=== PATIENT | male | born 1985 | race Caucasian/White ===

== ENCOUNTER 2020-04-09 09:50 | Emergency (ER) | payer BC, SELFPAY ==
--- NOTE | ~2020-04-09 | CT_ITS ---
EXAMINATION: CT abdomen pelvis wo con DATE: 04/09/2020 10:44 INDICATION: Left lower quadrant abdominal pain. TECHNIQUE: Computed tomography (CT) of the abdomen and pelvis was performed without intravenous contr ast. Automated exposure control and iterative reconstruction technique were employed. The dose-length product was 656.37 mGy-cm. COMPARISON: None. FINDINGS: The visualized portions of the lung bases are clear without pneumonia or pleural effusion. The heart size is normal. No pericardial effusion. There is a small sliding hiatal hernia. The liver, gallbladder, spleen, pancreas, adrenal glands, and right kidney are normal. There is mild left hydro nephrosis. There is a 4 mm stone in proximal left ureter. There are no dilated loops of bowel. The ap pendix is normal. There are no pathologically enlarged lymph nodes. There is no free intraperitoneal fluid. The bones are unremarkable. IMPRESSION: 1. 4 mm stone in proximal left ureter with mild left hydronephrosis. 2. Small sliding hiatal hernia. Reviewed, dictated and finalized at location A.
[2020-04-09 09:59] VITALS: BP 153/77; PULSE 76; RESP 18; TEMP 36.2; O2SAT 100
--- NOTE | 2020-04-09 10:15 | ED.ABDPAIN ---
HPI - Abdominal Pain General Chief Complaint: Abdominal Pain Stated Complaint: ABD PAIN Time Seen by Provider: 04/09/20 10:08 History of Present Illness HPI narrative: LLQ pain radiaiting into the scrotum since this morning. Severe. Better with standing. Associated with mild nausea. He has never had these symptoms before. No medical problem, takes no meds. No previous surgery. Related Data Allergies Allergy/AdvReac Type Severity Reaction Status Date / Time Sulfa (Sulfonamide Allergy Rash Verified 04/09/20 11:03 Antibiotics) Review of Systems Review of Systems: All systems reviewed & are unremarkable except as noted in HPI and below Constitutional: Constitutional: Denies fever(s) Cardiovascular: Cardiovascular: Denies chest pain Respiratory: Respiratory: Denies dyspnea Gastrointestinal: Gastrointestinal: Reports abdominal pain, Denies constipation, Denies diarrhea, Reports nausea and Denies vomiting Genitourinary: Genitourinary: Denies hematuria and Denies dysuria Neurologic: Denies dizziness and Denies weakness PMFSH Social History Social History (Updated 04/09/20 @ 11:00 by Romario Lund MD) Smoking status: Never smoker Exam Const: General: healthy appearing, no acute distress and alert Nutritional Appearance: well nourished Orientation/consciousness: patient oriented x3 HENMT: Head: normal to inspection Resp: Effort & Inspection: normal respiratory effort Auscultation: clear to auscultation bilaterally Cardio: Rate: regular rate Rhythm: regular rhythm GI: GI Palp: Yes Soft to palpation, Yes Tenderness to palpation present (GI) (mild LLQ), No Guarding due to palpation present (GI) and No Rebound tenderness present Skin: General skin exam: normal color Neuro: General: patient oriented x3, moves all extremities and CN's II-XI intact bilaterally Speech: normal speech Extrem: General: normal to inspection Course Vital Signs Vital signs: Vital Signs Temperature 36.2 C L 04/09/20 09:59 Pulse Rate 76 04/09/20 09:59 Respiratory Rate 18 04/09/20 09:59 Blood Pressure 153/77 H 04/09/20 09:59 Pulse Oximetry 100 04/09/20 09:59 Temperature 36.2 C L 04/09/20 09:59 Pulse Rate 72 04/09/20 12:50 Respiratory Rate 18 04/09/20 12:50 Blood Pressure 138/75 04/09/20 12:50 Pulse Oximetry 100 04/09/20 12:50 MDM - Abdominal Pain MDM Narrative Medical decision making narrative: [address] No indication of associated infection. He is a good candidate for a trial of nonoperative management. Medical Records Attestation: I reviewed the patient's medical records. Lab Data Attestation: I reviewed the patient's lab results. Result diagrams: 04/09/20 10:16 04/09/20 10:16 Labs: Lab Results 04/09/20 04/09/20 Range/Units 10:16 10:16 WBC 7.0 (4.5-10.0) K/mm3 RBC 4.97 (4.6-6.20) M/mm3 Hgb 15.5 (14.0-18.0) g/dL Hct 45.4 (42.0-52.0) % MCV 91.3 (80-100) fl MCH 31.2 (26-34) pg MCHC 34.1 (32-36) g/dl RDW 11.6 (11.5-14.5) % Plt Count 221 (150-375) k/mm3 MPV 11.1 H (7.4-10.4) fl Immature Gran % (Auto) 0.3 (0-0.5) % Neut % (Auto) 67.0 (45.5-73.1) % Lymph % (Auto) 23.0 (18.3-44.2) % [place] % (Auto) 7.7 (2.6-8.5) % Eos % (Auto) 1.6 (0-4.4) % Baso % (Auto) 0.4 (0.2-1.2) % Lymph # (Auto) 1.61 (0.9-3.2) K/mm3 [place] # (Auto) 0.5 (0.1-0.6) K/mm3 Eos # (Auto) 0.1 (0-0.3) K/mm3 Baso # (Auto) 0.0 (0.0-0.1) K/mm3 Abs Immat Gran (auto) 0.02 (0.00-0.031) K/mm3 Absolute Neuts (auto) 4.7 (1.3-6.7) K/mm3 Absolute Nucleated RBC 0.0 (0.0-0.012) K/mm3 Nucleated RBC % 0.0 (0.0-0.2) % Sodium 138 (137-145) mmol/L Potassium 4.0 (3.4-5.0) mmol/L Chloride 103 (98-107) mmol/L Carbon Dioxide 27 (22-30) mmol/L BUN 13 (9-20) mg/dL Creatinine 0.90 (0.7-1.3) mg/dL Estim Creat Clear Calc 124 ml/min Estimated GFR > 60 (59 - ) Glucose 117 H (7
[2020-04-09 10:54] LABS: Basophils Percent Auto 0.4 % (0.2-1.2); Eosinophils Absolute Auto 0.1 K/mm3 (0-0.3); Eosinophils Percent Auto 1.6 % (0-4.4); Hematocrit 45.4 % (42.0-52.0); Hemoglobin 15.5 g/dL (14.0-18.0); Immature Granulocyte Absolute 0.02 K/mm3 (0.00-0.031); Immature Granulocyte Percent A 0.3 % (0-0.5); Lymphocytes Absolute Auto 1.61 K/mm3 (0.9-3.2); Mean Corpuscular HGB Conc 34.1 g/dl (32-36); Mean Corpuscular Hemoglobin 31.2 pg (26-34); Mean Corpuscular Volume 91.3 fl (80-100); Mean Platelet Volume 11.1 fl (7.4-10.4); Monocytes Absolute Auto 0.5 K/mm3 (0.1-0.6); Monocytes Percent Auto 7.7 % (2.6-8.5); Neutrophils Absolute Auto 4.7 K/mm3 (1.3-6.7); Platelet Count Result 221 k/mm3 (150-375); Red Blood Count 4.97 M/mm3 (4.6-6.20); Red Cell Distribution Width 11.6 % (11.5-14.5)
[2020-04-09 11:01] LABS: Alanine Aminotransferase 20 U/L (4-50); Albumin Level 4.7 g/dL (3.5-5.1); Alkaline Phosphatase 67 U/L (38-126); Aspartate Amino Transferase 23 U/L (17-59); Blood Urea Nitrogen 13 mg/dL (9-20); Calcium 9.4 mg/dL (8.4-10.2); Carbon Dioxide 27 mmol/L (22-30); Chloride 103 mmol/L (98-107); Estimated CRCL calculation 124 ml/min; Estimated Glomerular Filt Rate > 60; Glucose 117 mg/dL (75-110); Sodium 138 mmol/L (137-145)
[2020-04-09] MEDS: TAMSULOSIN HCL 0.4 MG CAPSULE PO (11:06)
[2020-04-09] MEDS: KETOROLAC 30 MG/ML VIAL (*BKC) IV PUSH (11:31)
[2020-04-09] MEDS: SODIUM CHLORIDE 0.9% IV 1,000 ML 999 ML IV CONT (11:33)
[2020-04-09 12:46] LABS: Bilirubin,Total 0.5 mg/dL (0.2-1.3); Lipase 79 U/L (23-300)
[2020-04-09 12:50] VITALS: BP 138/75; PULSE 72; RESP 18; O2SAT 100
== END 2020-04-09 12:51 | disposition home or self-care (01) ==
PROVIDERS: Emergency Provider Emergency Medicine; PCP Internal Medicine
DX: N13.2 Hydronephrosis with renal and ureteral calculous obstruction (principal); K44.9 Diaphragmatic hernia without obstruction or gangrene
CPT/HCPCS: 36415; 74176; 80053; 83690; 85025; 96361; 96374; 96375; 99284; A9270; J1885; J3010; J7030

== ENCOUNTER 2020-04-14 12:16 | Outpatient (CLI) | payer BC, SELFPAY ==
--- NOTE | ~2020-04-14 | XR_ITS ---
XR abdomen/kub 1V 04/14/2020 12:38 Indication: Left-sided kidney stone Procedure: KUB Comparison: CT dated 04/09/2020 Findings: There is a proximal left ureteral stone adjacent to the left L2 transverse process. Bowel g as pattern is nonobstructive. No acute osseous abnormality. Impression: 1: Proximal left ureteral stone at the L2 level. Reviewed, dictated and finalized at location A. Impression: 1: Proximal left ureteral stone at the L2 level.
== END 2020-04-14 12:17 | disposition home or self-care (01) ==
PROVIDERS: Visit Provider Urology
DX: N20.1 Calculus of ureter (principal)
CPT/HCPCS: 74018

== ENCOUNTER 2020-04-15 00:35 | Outpatient (CLI) | payer BC, SELFPAY ==
[2020-04-15 17:33] LABS: SARS-CoV-2 RNA PCR Negative
== END 2020-04-15 00:36 | disposition home or self-care (01) ==
LOC: ANHCOVIDDT 00:35
PROVIDERS: Visit Provider Urology
DX: Z01.812 Encounter for preprocedural laboratory examination (principal); Z20.828 Contact with and (suspected) exposure to other viral communicable diseases
CPT/HCPCS: 87635; C9803; U0003

== ENCOUNTER 2020-04-15 07:14 | Outpatient (CLI) | payer BC, SELFPAY ==
[2020-04-15 08:06] LABS: INR 1.1; Partial Thromboplastin Time 27.7 SECONDS (22.3-36.8)
== END 2020-04-15 07:15 | disposition home or self-care (01) ==
PROVIDERS: Visit Provider Urology
DX: N20.0 Calculus of kidney (principal)
CPT/HCPCS: 36415; 85610; 85730

== ENCOUNTER 2020-04-17 01:36 | Day surgery (SDC) | payer BC, SELFPAY ==
[2020-04-14 14:45] VITALS: BMI 25.7
[2020-04-17] VITALS (8 sets, daily range): BP systolic 99–123; BP diastolic 63–77; PULSE 54–71; RESP 10–17; TEMP 35.8–36.3; O2SAT 98–100
--- NOTE | ~2020-04-17 | XR_ITS ---
EXAMINATION: XR abdomen/kub 1V DATE: 04/17/2020 06:47 INDICATION: Nephrolithiasis for planned lithotripsy. TECHNIQUE: A supine view of the abdomen on 2 radiographs was obtained. COMPARISON: CT dated 04/09/2020 FINDINGS: No interval change in a 5 mm stone at the proximal left ureter projecting along the cephalad margin o f the left transverse process of L3. Normal bowel gas pattern. IMPRESSION: 1. 5 mm proximal left ureteral stone. Reviewed, dictated and finalized at location A.
--- NOTE | 2020-04-17 06:55 | WPDHPUPDATE1 ---
History and Physical Update Update Date/Time: 04/17/20 06:55 History and Physical has been reviewed, including an updated exam of the patient. There are NO changes in the patient's condition. Risks, benefits, and alternatives have been discussed and questions answered. Patient agrees to proceed with procedure.
[2020-04-17] MEDS: LACTATED RINGERS 1,000 ML 30 ML IV CONT (07:20)
--- NOTE | 2020-04-17 08:05 | WPDANESEPPF ---
Anes - Initial Pre Proc Eval Procedure: Operation Date: 04/17/20 08:30 Proposed Procedures p Left Ureteral Extracorporeal Shock Wave Lithotripsy - Norberto Beaulieu MD Date/Time: 04/17/20 08:05 Surgeon: Norberto Beaulieu MD Pre Op Diagnosis: left ureteral stone Patient Data Age: 34 Gender: M Height: 6 ft 3 in Weight: 94.2 kg Last Vital Signs Temp 96.5 F L 04/17/20 07:44 Pulse 71 04/17/20 07:44 Resp 16 04/17/20 07:44 BP 108/63 04/17/20 07:44 Pulse Ox 98 04/17/20 07:44 Allergies Allergy/AdvReac Type Severity Reaction Status Date / Time Sulfa (Sulfonamide Allergy Mild LIGHT Verified 04/17/20 06:58 Antibiotics) SENSITIVITY Home Medications Medication Instructions Recorded Confirmed Type hydrocodone-acetaminophen [[place]] 1 tablet PO Q4H PRN #10 tablet 04/09/20 04/17/20 Rx tamsulosin [Flomax] 0.4 mg PO DAILY #10 cap 04/09/20 04/17/20 Rx cholecalciferol (vitamin D3) 125 mcg PO DAILY 04/14/20 04/17/20 History [Vitamin D3] multivitamin 1 tablet PO DAILY 04/14/20 04/17/20 History Patient hx anesthesia problems: none Family hx anesthesia problems: none [facility] Social History Social History (Updated 04/09/20 @ 11:00 by Romario Lund MD) Smoking status: Never smoker Anes - Eval Final PreProcedure Day of Procedure 04/17/20 08:05 Patient weight: normal Heart: regular rate and rhythm Lungs: clear to auscultation Airway: Mallampati scale class II Neurological: alert and oriented Last oral intake: >/= 8 hours ASA classification: I Emergent: no Anesthetic plan: proceed Anesthesia type and monitoring: general LMA and standard monitoring Informed Consent: The patient's anesthetic plan and its attendant risks and benefits were discussed with the patient/family/POA. Questions were solicited and answers provided to the satisfaction of the patient/family/POA.
[2020-04-17] MEDS: KETOROLAC 30 MG/ML VIAL (*BKC) IV PUSH (08:54)
--- NOTE | 2020-04-17 09:03 | PM.PROC ---
Procedure Note - Detailed Date of procedure: 04/17/20 Pre-op diagnosis: left ureteral stone Post-op diagnosis: same Procedure performed: ESWL of left ureteral calculus 4-5 mm Description of procedure: Patient was taken to the operative suite and correctly identified. Once anesthesia was obtained the stone was localized in both planes. Two thousand five hundred shocks were given to the stone. Patient tolerated procedure well without any complications. There appeared to be good fragmentation of the stone. He will follow up in 10-14 days with a KUB. If he develops any problems he will call so we can deal with appropriately Anesthesia: SUE Surgeon: Norberto Beaulieu MD Drains: No Packing: No Pathology: none sent Complications: No immediate complications Condition: stable Disposition: PACU
== END 2020-04-17 10:40 | disposition home or self-care (01) ==
PROVIDERS: PCP Internal Medicine; Visit Provider Urology
PROC: (CPT 50590; principal; 2020-04-17 08:30)
DX: N20.1 Calculus of ureter (principal)
CPT/HCPCS: 50590; 74018; J1100; J1885; J2405; J2704; J3010; J7120

== ENCOUNTER 2020-05-21 13:24 | Outpatient (CLI) | payer BC, SELFPAY ==
--- NOTE | ~2020-05-21 | XR_ITS ---
XR abdomen/kub 1V DATE: 05/21/2020 13:42 INDICATION: Left kidney stone TECHNIQUE: AP projection, 2 views COMPARISON: 04/17/2020 KUB 04/24/2020 KUB 04/09/2020 CT abdomen pelvis noncontrast examination FINDINGS: Previously reported 5 mm calcified stone of the proximal left ureter is no longer detected and presumably has passed. The psoas shadows are intact. No visceromegaly. No evidence of bowel obstruction. IMPRESSION: Apparent interval passage of 5 mm calcified left ureteral stone which is no longer radiog raphically detected Reviewed, dictated and finalized at Location A. Reviewed, dictated and finalized at location A. IMPRESSION: Apparent interval passage of 5 mm calcified left ureteral stone whi ch is no longer radiographically detected
== END 2020-05-21 13:25 | disposition home or self-care (01) ==
PROVIDERS: PCP Internal Medicine; Visit Provider Urology
DX: N20.1 Calculus of ureter (principal)
CPT/HCPCS: 74018

== ENCOUNTER → 2020-08-18 08:13 | Outpatient (CLI) | payer BC, SELFPAY ==
--- NOTE | ~2020-08-18 | CT_ITS ---
EXAMINATION: CT abdomen pelvis wo con DATE: 08/18/2020 08:29 INDICATION: Left ureteral stone TECHNIQUE: Computed tomography (CT) of the abdomen and pelvis was performed without intravenous contr ast. Automated exposure control and iterative reconstruction technique were employed. The dose-length product was 460.93 mGy-cm. COMPARISON: 05/21/2020 FINDINGS: Visualized lower lungs are clear. Visualized inferior heart is normal. Very small pericardial effusio n. No pleural effusion. Liver, gallbladder, spleen, pancreas and bilateral adrenal glands are normal. Kidneys and ureters are normal with no urolithiasis, hydroureteronephrosis or perinephric/ureteral s tranding. There is diffuse bladder wall thickening measuring up to 9 mm in thickness with smooth muco giorgio contour. No inflammatory stranding surrounding the bladder. Bowels including the appendix are nor mal. No free intraperitoneal gas or fluid. No pathologically enlarged abdominal or pelvic lymphadenop athy. Mild bilateral hip osteoarthritis. IMPRESSION: 1. Normal kidneys with no hydronephrosis or urolithiasis. 2. Diffuse bladder wall thickening which may be related to decompressed state but differential would include cystitis either acute or chronic. Correlate with urinalysis. Reviewed, dictated and finalized at location B. IMPRESSION: 1. Normal kidneys with no hydronephrosis or urolithiasis. 2. Diffuse bladder wall thickening which may be related to decompressed state b ut differential would include cystitis either acute or chronic. Correlate with urinalysis.
== END ==
PROVIDERS: Visit Provider Urology
DX: N20.1 Calculus of ureter (principal)
CPT/HCPCS: 74176

== ENCOUNTER 2020-08-28 03:30 | Outpatient (CLI) | payer BC, SELFPAY ==
[2020-08-28 17:45] LABS: SARS-CoV-2 RNA PCR Negative
== END 2020-08-28 03:31 | disposition home or self-care (01) ==
LOC: ANHCOVIDDT 03:30
PROVIDERS: PCP Internal Medicine; Visit Provider Surgery
DX: Z01.812 Encounter for preprocedural laboratory examination (principal); Z20.828 Contact with and (suspected) exposure to other viral communicable diseases
CPT/HCPCS: 87635; C9803; U0003

== ENCOUNTER 2020-08-31 01:27 | Day surgery (SDC) | payer BC, SELFPAY ==
[2020-08-27 14:58] VITALS: BMI 25.6
[2020-08-31] VITALS (10 sets, daily range): BP systolic 111–127; BP diastolic 54–77; PULSE 58–95; RESP 10–16; TEMP 35.9–36.4; O2SAT 98–100
--- NOTE | 2020-08-31 08:39 | P.PNAN_ITS ---
Anes - Initial Pre Proc Eval Procedure: Operation Date: 08/31/20 11:00 Proposed Procedures p Laparoscopic Left Inguinal Hernia Repair with Mesh, Possible Open - Pito Mane MD Date/Time: 08/31/20 08:39 Surgeon: Pito Mane MD Pre Op Diagnosis: left inguinal hernia Patient Data Age: 34 Gender: M Height: 1.91 m Weight: 92.99 kg Allergies Allergy/AdvReac Type Severity Reaction Status Date / Time Sulfa (Sulfonamide Allergy Mild photophobia Verified 08/27/20 15:09 Antibiotics) Home Medications Medication Instructions Recorded Confirmed Type cholecalciferol (vitamin D3) 125 mcg PO DAILY 04/14/20 08/27/20 History [Vitamin D3] multivitamin 1 tablet PO DAILY 08/27/20 08/27/20 History Patient hx anesthesia problems: none Family hx anesthesia problems: none PMFSH Past Medical History Medical History Healthy adult History of kidney stones Surgical History Surgical History History of nephrolithotomy with removal of calculi Family History Family History Father Hypertension Mother Kidney stones Social History Social History Smoking status: Never smoker Alcohol intake: current Drinks per week: 10 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 Questions were solicited a nd answers provided to the satisfaction of the patient/family/POA.
[2020-08-31] MEDS: LACTATED RINGERS 1,000 ML 30 ML IV CONT ×3 (09:30→13:24)
[2020-08-31] MEDS: KETOROLAC 15 MG/ML VIAL (*BKC) IV PUSH (09:35)
[2020-08-31] MEDS: ACETAMINOPHEN 500 MG TABLET 1000 MG PO (09:37)
--- NOTE | 2020-08-31 10:42 | WPDHPUPDATE1 ---
History and Physical Update Update Date/Time: 08/31/20 10:42 History and Physical has been reviewed, including an updated exam of the patient. There are NO changes in the patient's condition. Risks, benefits, and alternatives have been discussed and questions answered. Patient agrees to proceed with procedure.
[2020-08-31] MEDS: ceFAZolin 2 GM/D5W 50 ML 2 GM/50 ML BAG IVPB (10:53)
[2020-08-31] MEDS: BUPIVACAINE/EPINEPHRINE 0.5% 10 ML VIAL 30 ML INFILTRATE (11:45)
--- NOTE | 2020-08-31 12:52 | PM.PROC ---
Procedure Note - Detailed Date of procedure: 08/31/20 Pre-op diagnosis: left inguinal hernia Post-op diagnosis: same ( suspected small direct left inguinal hernia) Procedure performed: Laparoscopic preperitoneal left inguinal hernia repair Description of procedure: After appropriate marking of the operative site prior to surgery, the patient was taken to the operating room. After induction of adequate general endotracheal anesthesia by [facility] staff, the patient was carefully prepped and draped in a sterile fashion. A timeout was performed confirming the procedure and site of surgery on the left. Following this, local anesthetic was infiltrated into the umbilical area and a vertical incision was made just below the umbilicus. I carefully dissected down to the the anterior rectus sheath on the left and then made a 1 cm vertical slit in the fascia just off the midline. The rectus muscle was retracted to left and then just in front of the posterior rectus sheath, a dissecting balloon was passed onto the pubic bone. After placing slight pressure on the right groin area, this was insufflated with 40 pumps, while watching with the 0 degree laparoscope. It appeared that I was in the proper plane. Following this, the dissecting balloon was removed and replaced by an circular-frame conforming balloon. Following this, the 0 degree laparoscope was used to carefully place two 5mm trocars, just to the right of midline. One suprapubic and other one mcfp between the umbilicus and the pubic bone. Tedious dissection then occurred in the preperitoneal space exposing the Rajendra's ligament, the cord structures, the muscular tissue anteriorly, and the retroperitoneum. I then switched to use of the 10 mm 45 degree angled laparoscoped. This was then able to be dissected back and we could visualize the posterior peritoneum. I then dissected up to the level of the umbilicus and it was ready for mesh placement. After carefully confirming all sites and that the mesh would cover the direct space, I carefully rolled the Large left Bard 3 D Max mesh and slid this through the 12 mm trocar at the umbilical level down into the preperitoneal space. This unfurled nicely and sat nicely against the left groin structures. It nicely covered all spaces and it went back nicely into the preperitoneal space along the anterior-superior iliac spine. I took a picture of it carefully, which showed that the mesh will cover the preperitoneal groin well, and had come down to the posterior border of the peritoneum. Once this was accomplished, I took the patient out of Trendelenburg position, rotated the patient back even, and then observed using a dissector through the higher 5 mm trocar to keep the mesh pushed down against the anterior and posterior abdominal wall retroperitoneally. The peritoneum was then allowed to fall on to the mesh and it held the mesh nicely in place. I carefully removed each of the 5 mm trocars under direct vision and compressed the CO2 gas out of the preperitoneal space, deflating the conforming balloon and removing it. I was happy with the way the peritoneum laid back on the mesh. I felt this will give the patient a good preperitoneal repair. Following this, I carefully removed the conforming balloon. An O Vicryl figure of eight suture was used to close the anterior rectus sheath on the left side of the umbilical incision and then local anesthetic was infiltrated into each of the incisions. Each site was closed with 4-0 undyed Monocryl and a running subcuticular closure of 4-0 undyed Monocryl was used on the skin of umbilicus. Surgical glue was used for dressing. Following this, the patient was taken to the recovery room in good condition. Estimated blood loss, again, was about less than 30 mls. Home going instructions were given for taking it easy for one week and to follow up in the office in two weeks. Implants: One piece of Bard large left 3DMax mesh Surgeon: Pito Hernandez
[2020-08-31] MEDS: oxyCODONE HCL (*CRX) 5 MG TAB IR PO (15:36)
== END 2020-08-31 15:45 | disposition home or self-care (01) ==
PROVIDERS: PCP Internal Medicine; Visit Provider Surgery
PROC: (CPT 49650; principal; 2020-08-31 11:00)
DX: K40.90 Unilateral inguinal hernia, without obstruction or gangrene, not specified as recurrent (principal)
CPT/HCPCS: 49650; 36415; 86850; 86900; 86901; A9270; C1781; J0330; J0690; J1100; J1885; J2250; J2405; J2704; J2710; J3010; J7120

== ENCOUNTER 2020-09-25 06:54 | Outpatient (NON) | payer BC, SELFPAY ==
[2020-09-25 19:25] LABS: SARS-CoV-2 RNA PCR Negative
== END 2020-09-25 06:55 ==
LOC: ANHCOVIDDT 07:13
PROVIDERS: PCP Internal Medicine; Visit Provider Internal Medicine
DX: R05 Cough (principal); Z20.828 Contact with and (suspected) exposure to other viral communicable diseases
CPT/HCPCS: 87635; C9803; U0003

== ENCOUNTER → 2021-01-19 07:37 | Outpatient (CLI) | payer BC, SELFPAY ==
--- NOTE | ~2021-01-19 | US_ITS ---
EXAMINATION: US soft tissue groin RT DATE: 01/19/2021 08:05 INDICATION: Right inguinal lymphadenopathy. TECHNIQUE: Multiple grayscale and Doppler ultrasound images of the right inguinal region were obtaine d. COMPARISON: CT abdomen and pelvis 08/18/2020 FINDINGS: There are normal lymph nodes in the right inguinal region. IMPRESSION: 1. No abnormal mass or lymphadenopathy. Reviewed, dictated and finalized at location A.
== END ==
PROVIDERS: PCP Internal Medicine; Visit Provider Internal Medicine
DX: R59.0 Localized enlarged lymph nodes (principal)
CPT/HCPCS: 76882

== ENCOUNTER 2025-01-03 10:40 | Outpatient (CLI) | payer BC, SELFPAY | END 2025-01-03 10:41 | disposition home or self-care (01) | LOC: ANHIMG 10:40 | PROVIDERS: PCP Internal Medicine; Visit Provider Student in an Organized Health Care Education/Training Program | DX: N20.0 Calculus of kidney (principal) | CPT/HCPCS: 74176 ==